=== PATIENT | male | born 1965 | race Two or more races ===

== ENCOUNTER → 2019-12-21 | Outpatient (CLI) | payer BC ==
[~2019-12-21] MED LIST: ASPI-612 PO; LOSA100T14 PO; OXYC1TAB15 PO; vitamin d2 PO
== END ==
LOC: LAB 14:15
PROVIDERS: ATTEND Surgery
DX: Z01.818 Encounter for other preprocedural examination (principal); Z11.59 Encounter for screening for other viral diseases; K40.90 Unilateral inguinal hernia, without obstruction or gangrene, not specified as recurrent
CPT/HCPCS: 36415; U0003

== ENCOUNTER 2019-12-26 08:09 | Day surgery (SDC) | payer BC ==
[~2019-12-26] VITALS: Ht 167.6 cm; Wt 79.5 kg
[~2019-12-26 08:09] MED LIST changes: +BACITRACIN 50,000 UNIT in IV NORMAL SALINE 500ML BAG 500 ML IRR ONE; +HYDROmorphone 2 MG/ML VIAL IV PRN; +IV RINGERS,LACTATED 1000ML 1,000 ML IV SCH; +MORPHINE SULFATE 2 MG/ML VIAL. IV PRN; +ONDANSETRON PF 4 MG/2 ML VIAL. IV PRN; -OXYC1TAB15 PO; +PROCHLORPERAZINE 10 MG/2 ML VIAL. IV PRN; +fentaNYL PF VIAL 100 MCG/2 ML VIAL IV PRN
[2019-12-26] MEDS ORDERED: LIDOCAINE 2% PF 5 ML VIAL. ONE (08:36)
[2019-12-26] MEDS ORDERED: ONDANSETRON PF 4 MG/2 ML VIAL. ONE (08:36)
[2019-12-26] MEDS ORDERED: DEXAMETHASONE SOD PHOS 4 MG/ML VIAL ONE (08:36)
[2019-12-26] MEDS ORDERED: PROPOFOL 10 MG/ML (20ML) VIAL. IV ONE (08:36)
[2019-12-26] MEDS ORDERED: ceFAZolin 2GM PREMIX 2 GM/50 ML BAG IV ONE (09:00)
[2019-12-26] MEDS ORDERED: fentaNYL PF VIAL 250 MCG/5 ML VIAL ONE (09:26)
[2019-12-26] MEDS ORDERED: BUPIVACAINE-EPI 0.5%-1:200000 MPF 30 ML VIAL. ONE (09:29)
[2019-12-26] MEDS ORDERED: KETOROLAC 30 MG/ML VIAL. ONE (10:56)
[2019-12-26] MEDS ORDERED: SEVOFLURANE 61 TO 120 MINUTES. IH ONE (10:57)
[2019-12-26] MEDS ORDERED: ROPIVacaine 0.5% PF 20 ML VIAL. ONE (11:02)
--- NOTE | 2019-12-26 11:11 | PDOC4 ---
Operative Note Operative Note Operative Note: Preoperative Diagnosis: Left inguinal hernia Postoperative Diagnosis: Left inguinal hernia Procedure: Left inguinal hernia repair with mesh Surgeon: Ludwin Sheet Metal Fabricator: Nelsy JOY Anesthesia: General EBL: 10 mL Specimen: None Drains: None Complications: None Indication: The patient is a 54-year-old male who was referred with a left inguinal hernia. He was offered surgical repair. The risks of surgery were discussed which include bleeding, infection, recurrence, pain, anesthetic risk, potential need for additional surgery or procedure. He understands and would like to proceed. Description: The patient was taken to the operating room and placed supine on the operating table. General anesthesia was performed. The left groin was shaved and prepped with ChloraPrep and draped in a standard surgical manner. An incision was made in the skin lines of the left groin with a scalpel. Cautery dissection was carried down to the external oblique aponeurosis. The aponeurosis was opened down to the external ring. The contents of the inguinal canal were digitally mobilized and encircled with a Cass drain. The patient had a moderate sized direct hernia defect. The edges of the defect were delineated. The attenuated transversalis fascia was opened exposing the preperitoneal fat. The contents were reduced and the defect was filled with an extra-large Phasix mesh plug. The plug was sutured around its periphery with 2- 0 Vicryl. The entire inguinal floor was then reinforced with a keyhole Prolene mesh patch. The patch was also sutured into position with 2-0 Vicryl. A slit was made to accommodate the cord structures. Upon completion the mesh rested well providing full coverage of the inguinal floor and the plug remained intact deep to it. The external oblique was closed over the mesh with 2-0 Vicryl. The subcutaneous tissue was closed with 3-0 Vicryl. The skin was closed with 4-0 Monocryl. The incision was infiltrated with half percent Marcaine with epinephrine. Steri-Strips and a sterile dressing were applied. The patient tolerated the procedure well and was sent to the recovery room in stable condition. At the end of the case all counts were correct. JAROD MCDANIEL MD Dec 26, 2019 11:11
--- NOTE | 2019-12-26 11:13 | DISCH ---
DISCHARGE INSTRUCTIONS Condition on Discharge Condition on Discharge: Stable Activity After Discharge Activity Instructions for Disc: Other, see below (no lifting over 20 lbs X 4 weeks) Diet after Discharge Diet after Discharge: Regular Wound Incision Care Wound/Incision Care: Other, see below (keep dressing clean and dry X 72 hours, may then remove and shower) Follow-Up Follow up with: Dr Mcdaniel in 2 weeks in office, call for appt [phone] JAROD MCDANIEL MD Dec 26, 2019 11:13
[2019-12-26] MEDS ORDERED: OXYC1TAB15 PO (11:18)
[2019-12-26] MEDS ORDERED: oxyCODONE/APAP 5/325 1 TAB TABLET PO ONE (11:30)
[2019-12-26] MEDS: fentaNYL PF VIAL 100 MCG/2 ML VIAL IV PRN ×2 (11:35→11:40)
[2019-12-26 11:45] VITALS: BP 129/78
== END 2019-12-26 12:25 | disposition home or self-care (01) ==
LOC: SURG 08:09
PROVIDERS: ATTEND Surgery
DX: K40.90 Unilateral inguinal hernia, without obstruction or gangrene, not specified as recurrent (principal); I10 Essential (primary) hypertension
CPT/HCPCS: 49505; A7015; C1781; J0696; J1100; J1885; J2405; J2704; J3010; J3490; J7040; J2795